=== PATIENT | male | born 1975 | race Caucasian/White ===

== ENCOUNTER 2021-07-12 21:44 | Emergency (ER) | payer OTHER ==
[~2021-07-12 21:44] MED LIST: PERCOCET 5-3251 EACH PO
[2021-07-12] MEDS ORDERED: NORCO 5-325 TA1 EACH PO (23:56)
== END 2021-07-13 00:44 | disposition home or self-care (01) ==
LOC: FER 21:44
DX: S50.11XA Contusion of right forearm, initial encounter (principal); W23.1XXA Caught, crushed, jammed, or pinched between stationary objects, initial encounter; Y92.89 Other specified places as the place of occurrence of the external cause; Y99.0 Civilian activity done for income or pay
CPT/HCPCS: 73090

== ENCOUNTER 2022-04-26 22:31 | Emergency (ER) | payer OTHER ==
[~2022-04-26 22:31] MED LIST changes: +NORCO 5-325 TA1 EACH PO
== END 2022-04-27 00:30 | disposition home or self-care (01) ==
LOC: FER 22:31
DX: S51.812A Laceration without foreign body of left forearm, initial encounter (principal); Z23 Encounter for immunization; W26.8XXA Contact with other sharp object(s), not elsewhere classified, initial encounter; Y92.89 Other specified places as the place of occurrence of the external cause; Y99.0 Civilian activity done for income or pay
CPT/HCPCS: 90471; 90715